=== PATIENT | female | born 1990 | race Caucasian/White ===

== ENCOUNTER 2018-02-11 07:10 | Emergency (ER) | payer OTHER ==
[~2018-02-11] VITALS: Ht 167.6 cm; Wt 74.8 kg
--- NOTE | 2018-02-11 07:15 | NUR ---
AAOX3, C/O ASTHMA, OUT OF HER INHALER/MEDS FOR THE LAST 3 DAYS ON/OFF COUGH X 2 MONTHS. RR IS EVEN AND UNLABORED WITH NAD NOTED. SKIN IS WARM AND DRY. SPEAKS IN FULL SENTENCES. AWAITING MD FOR EVAL.
--- NOTE | 2018-02-11 07:17 | NUR ---
DR CAMP AT FOR EVAL.
--- NOTE | 2018-02-11 07:22 | NUR ---
BREATHING TREATMENT AT
[2018-02-11] MEDS ORDERED: predniSONE 20 MG TABLET ONE (07:29)
[2018-02-11] MEDS ORDERED: IPRATROPIUM NEB FS 0.5 MG/2.5 ML AMPUL.NEB NEB ONE (07:30)
[2018-02-11] MEDS ORDERED: predniSONE 20 MG TABLET PO ONE (07:30)
[2018-02-11] MEDS ORDERED: ALBUTEROL FS 2.5 MG/3 ML VIAL.NEB CONTNEB ONE (07:30)
[2018-02-11] MEDS ORDERED: ALBUTEROL FS 2.5 MG/3 ML VIAL.NEB ONE (07:34)
--- NOTE | 2018-02-11 07:58 | NUR ---
Dr Martinez at for an update and re-eval.
--- NOTE | 2018-02-11 08:06 | NUR ---
Patient discharged to home in stable condition. Written and verbal after care instructions given. Patient verbalizes understanding of instruction.
[2018-02-11 08:07] VITALS: BP 124/78
== END 2018-02-11 08:08 | disposition home or self-care (01) ==
LOC: ER 07:11
DX: J45.901 Unspecified asthma with (acute) exacerbation (principal); Z88.0 Allergy status to penicillin
CPT/HCPCS: A4606; Z7610